=== PATIENT | male | born 1975 | race Caucasian/White ===

== ENCOUNTER 2017-01-31 07:43 | Inpatient (IN) | payer OTHER ==
--- NOTE | ~2017-01-31 | A ---
[facility] Nutrition Therapy DATE: 02/02/17 Patient: DANE POPE Physician: AL Address: [address] [place] [address] Room/Bed: [address], Zip: [place] [phone] Admit Date: 01/31/17 Date of : 71 Height: 5 11 Weight: 216 98 NUTRITIONAL ASSESSMENT: REASON: NPO IN ICU ASSESSMENT PT IS 41 Y.O. MALE ADMITTED FOR WEAKNESS, ACUTE RESP FAILURE PMH: NO KNOWN PMH Anthropometrics: 5'11", WT: 190# (BEDSIDE) (86 KG), BMI: 26.5, 110%IBW Labs: GLU: 164, BUN: 8, A1c: 5.4 Meds: FENTANYL, PROTONIX, VERSED, LIPITOR, NOVOLOG, NACL, D5% I/O & Bowel function: 2304/1780 Skin Integrity: NO KNOWN SKIN ISSUES EDEMA: PEDAL TRACE EDEMA Estimated Nutrition Needs: 6555-2019 KCAL (25-30 KCAL/KG BW) 86-112 G PRO (1.0-1.3 G PRO/KG BW) FLUIDS CONSISTENT W/KCAL NEEDS OR MANAGE PER MD Assessment: CHART REVIEWED AND EVENTS NOTED. PT SEEN FOR NPO IN ICU ASSESSMENT. PT INTUBATED AND SEDATED AT TIME OF VISIT. PLANS IN PLACE FOR DHT PLACEMENT AND NEED FOR ENTERAL NUTRITION SUPPORT RECOMMENDATIONS. OF NOTE, PT [place]ANISH DECENT WHO WAS [place]. PT WAS TRANSFERRED TO ICU FROM FOR POSSIBLE CVA AND RESP FAILURE. ALSO, KEEL PRESS OPERATOR DEEMED PT NOT APPROPRIAT FOR DIET ADVANCEMENT 2' NONFUNCTIONAL PHARYNGEAL SWALLOW, ?NEED FOR TRACH AND PEG PLACEMENT. NO FAMILY IN ROOM AT TIME OF VISIT. RD TO FOLLOW. SEE RECOMMENDATIONS BELOW. 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 Intervention: 1. NPO 2. RD CONSULT Monitoring, Evaluation and Goals: 1. ENTERAL NUTRITION; PROVIDE ~80-100% ESTIMATED NUTRIENT NEEDS AT GOAL X 24 HOURS 2. ORAL INTAKE; ADVANCE DIET PER KEEL PRESS OPERATOR & CONSUME >50% OF MEALS W/NO C/O N/V/D 3. LABS; WNL 4. GI; PROMOTE REGULAR GI FUNCTION [facility] DATE: 02/02/17 Patient: DANE POPE Physician: AL Address: [address] [place] [address] Room/Bed: [address], Zip: [place] [address] Admit Date: 01/31/17 Date of : [birth year] Height: 5 11 Weight: 216 98 MONITOR: -WEIGHTS -TF INITIATION/TF RATE/RESIDUALS -LABS -EXTUBATION? Recommendations: 1. ONCE MEDICALLY FEASIBLE, BEGIN ALTERNATIVE NUTRITION SUPPORT OF JEVITY 1.5 @ 20 ML/HR, ADVANCE 10 ML q 6 HOURS TO GOAL RATE OF 65 ML/HR -PROVIDES 2340 KCAL, 99 G PRO, 1186 ML FREE H20 ADD FREE H20 FLUSHES OF PER MD 2. ONCE PT EXTUBATED, ADVANCE DIET PER KEEL PRESS OPERATOR + HH DIET RD WILL F/U PER PROTOCOL PT IS SEVERELY COMPROMISED Respectfully, IWONA CORONEL MS, RD, LD [employer] and Nutritional Services [facility] [place] [facility] cc: client file
--- NOTE | ~2017-01-31 | US85 ---
[facility] A Service of [facility] RADIOLOGY TEXT RESULTS PATIENT: DANE POPE LOCATION: MARCIA : 71 UNIT #: [id number] AGE: [address]: Rush Herron MD SEX: M ORDER DR: [id number] [facility] [address] [facility]. [place], [place] [address] [id number] E MR#: [id number] Acc #: [id number] NAME: DANE POPE : 1975 SEX: M STUDY DATE/TIME: 01/31/2017 8:04 UNIT: MARCIA ROOM: STUDY DESCRIPTION: [facility] [employer] Attending Physician: Rush Herron M.D. Ordering Physician: Rush Herron M.D. Primary Care Physician: Primary Care Physician No MEDICAL IMAGING REPORT This report is preliminary unless electronic signature is present EXAM Left lower extremity venous ultrasound. INDICTIONS Left lower extremity pain for two days. TECHNIQUE Venous ultrasound examination of the left lower extremity was performed using grayscale, spectral Doppler and color flow Doppler imaging. FINDINGS The examination is negative. There is no evidence of left lower extremity deep venous thrombus from the groin to the lower calf. Visualized greater saphenous vein is also patent. IMPRESSION Negative examination. No evidence of left lower extremity deep venous thrombosis. Dictated by... Adam Gallego M.D. THIS IS AN ELECTRONICALLY VERIFIED REPORT Adam Gallego M.D. at 01/31/2017 1:37 PM JOELLE/romero TD: 01/31/2017 09:15 JOB #: [id number] MEDICAL IMAGING REPORT [facility] A Service of [facility] RADIOLOGY TEXT RESULTS PATIENT: DANE POPE LOCATION: M[place]IA : 71 UNIT #: [id number] AGE: [address]: Rush Herron MD SEX: M ORDER DR: Page 1 of 1 COPY
--- NOTE | ~2017-01-31 | FU ---
[facility] Nutrition Therapy DATE: 02/04/17 Patient: DANE POPE Physician: AL Address: [address] [place] [address] Room/Bed: [address], Zip: [place] [address] Admit Date: 01/31/17 Date of : [birth year] Height: 5 11 Weight: 221 100.5 NUTRITION MONITORING/FOLLOW-UP: Reason: PT SEEN FOR FOLLOW-UP/ENTERAL NUTRITION SUPPORT DX: WEAKNESS, ACUTE RESP FAILURE Anthropometrics: 5'11", WT: 221# (100 KG), BMI: 30.8 -PER FAMILY, PT WEIGHS ~210# (95 KG)-BMI: 29.3 Labs: GLU: 128, BUN: 8, CREAT: 0.5 Meds: FENTANYL, NACL, PROTONIX, VERSED, LIPITOR, NOVOLOG I&O's: 4558/3370 Skin: PEDAL/ANKLE EDEMA Estimated Nutrition Needs: 0526-8915 KCAL (25-30 KCAL/KG BW) (95 KG) 95-123 G PRO (1.0-1.3 G PRO/KG BW) FLUIDS CONSISTENT W/KCAL NEEDS OR MANAGE PER MD Assessment: CHART REVIEWED AND EVENTS NOTED. PT SEEN FOR ENTERAL NUTRITION SUPPORT FOLLOW-UP. PT CONTINUES TO BE INTUBATED AND SEDATED. ENTERAL NUTRITION OF JEVITY 1.5 CURRENTLY OFF 2' BRONCHOSCOPY SCHEDULED THIS AM. PER RN AND CHART, PT TOLERATING EN, NOTING NO ISSUES AT THIS TIME. ALSO, ?TRACH AND PEG AND ?BICKERSTAFF ENCEPHALITIS. FAMILY IN ROOM REPORTED NO DIET QUESTIONS AT THIS TIME. RD TO CONTINUE TO FOLLOW. 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 ENTERAL NUTRITION SUPPORT Monitoring, Evaluation and Goals: 1. ENTERAL NUTRITION; PROVIDE ~80-100% ESTIMATED NUTRIENT NEEDS-NOT MET 2. LABS; WNL-ACTIVE 3. GI; PROMOTE REGULAR GI FUNCTION-ACTIVE MONITOR: -WEIGHTS -TF RATE/RESIDUALS -EXTUBATION? -LABS [facility] Nutrition Therapy DATE: 02/04/17 Patient: DANE POPE Physician: AL Address: [address] [place] [address] Room/Bed: [address], Zip: [place] [address] Admit Date: 01/31/17 Date of : [birth year] Height: 5 11 Weight: 221 100.5 Recommendations: 1. ONCE MEDICALLY FEASIBLE, RE-START ENTERAL NUTRITION SUPPORT OF JEVITY 1.5 @ 25 ML/HR, ADVANCE 10 ML q 4 HOURS TO GOAL RATE OF 65 ML/HR -PROVIDES 2340 KCAL, 99 G PRO, 1186 ML FREE H20 ADD FREE H20 FLUSHES OF 200 ML q 4 HOURS TO MEET PT'S CURRENT ESTIMATED FLUID NEEDS OR MANAGE PER MD 2. ONCE PT EXTUBATED, ADVANCE DIET PER ELEMENTARY EDUCATION TEACHER + HH DIET RD WILL F/U PER PROTOCOL PT IS MOD/SEVERELY COMPROMISED Respectfully, IWONA CORONEL MS, RD, LD Food and Nutritional Services [facility] cc: client file
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
--- NOTE | ~2017-01-31 | CR7 ---
[facility] A Service of [facility] & [facility] RADIOLOGY TEXT RESULTS PATIENT: DANE POPE LOCATION: CICCU2 CICCU11-07 : [birth year] UNIT #: [id number] AGE: [address]: Analy Perez MD SEX: M ORDER DR: [id number] [facility] [address] [place], [place] [address] [id number] I MR#: [id number] Acc #: [id number] NAME: DANE POPE : 1975 SEX: M STUDY DATE/TIME: 02/02/2017 15:57 UNIT: CICCU2 ROOM: [facility] STUDY DESCRIPTION: CR Abdomen Single AP View Attending Physician: Analy Perez M.D. Ordering Physician: Sebas Beverly M.D. Primary Care Physician: No Primary Care Physician MEDICAL IMAGING REPORT This report is preliminary unless electronic signature is present EXAM Portable AP view of the abdomen. COMPARISON February 02, 2017 at 1:14 p.m. and 9:58 a.m. INDICATION 41-year-old male. Feeding tube tip placement today. FINDINGS Weighted feeding tube appears to have retracted slightly with the tip in the gastric fundus. Advancement is recommended. There is gaseous distension of small bowel loops and colon without evidence of mechanical bowel obstruction. IMPRESSION 1. Weighted feeding tube is retracted slightly with the tip in the gastric fundus. Advancement is recommended. 2. No evidence of bowel obstruction. Dictated by... Carlos Nice M.D. THIS IS AN ELECTRONICALLY VERIFIED REPORT Carlos Nice M.D. at 02/07/2017 5:18 PM MAYDA/sal TD: 02/02/2017 17:24 JOB #: [id number] MEDICAL IMAGING REPORT [facility] A Service of [facility] & [facility] RADIOLOGY TEXT RESULTS PATIENT: DANE POPE [facility] [birth year] UNIT #: [id number] AGE: [address]: Analy Perez MD SEX: M ORDER DR: Page 1 of 1 COPY
--- NOTE | ~2017-01-31 | CO ---
Unit #: [id number] #: [id number] Patient: DANE POPE [id number] [address] [place], [place] [address] [id number] I MR#: [id number] NAME: DANE POPE ROOM: [facility] Age: 41 Sex: M Admission Date: 01/31/2017 : 1975 Attending Physician: Analy Perez M.D. Primary Care Physician: Rupa Primary Care Physician Consultation Date: 02/01/2017 CONSULTATION REPORT ADDENDUM The patient is a 41-year-old male of [place] descent who was admitted to the hospital at this time with neurologic changes suggestive of a stroke. His symptoms worsened over the day as he required intubation to protect his airway. We were asked to see the patient at this time for possible tracheostomy. I agree with the evaluation as documented by my nurse practitioner, Esperanza Wagner, in her consultation. I will plan to proceed with a tracheostomy tomorrow in the operating room on the patient. Dictated by... Ras Tidwell M.D. VIRGEN/rupinder TD: 02/02/2017 06:51 JOB #: [id number] CONSULTATION REPORT Page 1 of 1 X Ras Tidwell MD X CONSULTATION REPORT
--- NOTE | ~2017-01-31 | DS ---
Unit #: [id number] #: [id number] Patient: DANE POPE [id number] [address] [place], [place] [address] [id number] I MR#: [id number] NAME: DANE POPE ROOM: [facility] Age: 41 Sex: M Admission Date: 01/31/2017 : 1975 Discharge Date: 02/04/2017 Attending Physician: Analy Perez M.D. Primary Care Physician: No Primary Care Physician DISCHARGE SUMMARY PLACE OF TRANSFER [facility]. HISTORY OF PRESENT ILLNESS/HOSPITAL COURSE The patient is a 41-year-old male with no significant past medical history, who was brought to the emergency department secondary to complaints of weakness and left lower extremity as well as right upper extremity. Please see H and P for details of initial part of hospital stay. Patient underwent CT brain noncontrast in emergency room as well as CTA head and neck which were negative. Through initial part of hospital course, concern for underlying cerebrovascular accident was made. Consultations were placed to Dr. Vargas. Patient underwent routine stroke protocol. Consideration was given for MRI and subsequently plans were being made for the patient to be transferred for MRI when subsequently he developed dysphagia as well as difficulty clearing his secretions. After discussion with the patient, Dr. Bevrely of intensive care services was called. Patient was told that secondary to compromising airway he required ventilation as well as PEG tube placement. He agreed. He was subsequently sedated, placed on ventilator, and subsequently consultation was also placed for PEG tube placement. We also consulted thoracic surgery services secondary to need for tracheostomy placement and subsequently on February 02, 2017, the patient underwent tracheostomy and was placed on ventilator for ongoing care. Consideration for possible postinfectious neuropathy. Consideration to his recent travels to [place] as well as abroad. We consulted infectious disease services. Ultimately, his MRI brain was negative for acute CVA and then consideration was placed for atypical asymmetric lower motor neuron-type paralysis, questionable infectious etiology, possible encephalomyelitis. Patient was placed on Zithromax IV. Repeat imaging including brain, C-spine was also recommended. Patient underwent diagnostic and therapeutic bronchoscopy by Dr. Beverly on February 04, 2017. In consideration of a normal MRI as well as worsening condition and unclear diagnosis of possible underlying immunocompromised state and/or possible encephalitis-like picture. Dr. Vargas reviewed case with [facility], Dr. Gastelum, and decision was made for patient to be transferred to [facility] for ongoing care. At time of transfer, his current diagnosis is as follows. Unit #: [id number] #: [id number] Patient: DANE POPE DISCHARGE DIAGNOSES 1. Acute on chronic respiratory failure. 2. 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 3. Inability to clear respiratory secretions. 4. Dysphagia, secondary to neuropathy, unclear etiology. 5. Status post bronchoscopy. DISPOSITION [facility] for ongoing care. DIAGNOSTIC STUDIES IMAGING: Radiological studies including through hospital course include: CT brain negative for acute process. CTA head and neck negative. MRI brain negative. Further disposition per [facility] service. Dictated by... Analy Perez M.D. SKINNY/emerald TD: 02/21/2017 16:00 JOB #: [id number] DISCHARGE SUMMARY Page 1 of 1 X Analy Perez MD X DISCHARGE SUMMARY
--- NOTE | ~2017-01-31 | HP ---
Unit #: [id number] #: [id number] Patient: DANE POPE [id number] [address] [place], [place] [address] [id number] E MR#: [id number] NAME: DANE POPE ROOM: Age: 41 Sex: M Admission Date: 01/31/2017 : 1975 Attending Physician: Rush Herron M.D. Primary Care Physician: No Primary Care Physician HISTORY AND PHYSICAL CHIEF COMPLAINT Weakness. HISTORY OF PRESENT ILLNESS The patient is a 41-year-old male with no significant medical history brought to the emergency room complaining of weakness of the left lower extremity and right upper extremity. The patient stated the patient has been overseas for a month and returned home on Tuesday, yesterday, from the [facility]. The patient noted that he had a wobbly gait prior to the taking the long distance flight. The patient stated that he had no choice but just to come back here. The patient denies any shortness of breath, chest pain, dizziness or trauma. The patient complains that the left leg has some weakness and the right upper extremity has some movements and the complaint of right neck pain. The patient had a CT and CTA of the head and neck and that has remained negative. The patient is being admitted for the above reasons. PAST MEDICAL HISTORY None. PAST SURGICAL HISTORY None. SOCIAL HISTORY No history of smoking, alcohol, or any illicit drug abuse. FAMILY HISTORY No history of CVAs. ALLERGIES Penicillin. HOME MEDICATIONS None. REVIEW OF SYSTEMS A 14-point review of systems was performed only pertinent positive findings are described above, remaining are negative. PHYSICAL EXAMINATION GENERAL APPEARANCE: The patient is lying on a bed, not in acute distress. VITAL SIGNS: Temperature 97.2. Pulse 86. Respiratory rate 16. Blood pressure 127/80. Sating 97% at room air. HEENT: Head: Atraumatic, normocephalic. ENT: Pupils equal, round and Unit #: [id number] #: [id number] Patient: DANE POPE reactive to light and accommodation. Extraocular movements are intact. NECK: Supple. LUNGS: Decreased air entry at the bases. HEART: Regular rate and rhythm. ABDOMEN: Soft. Positive bowel sounds. EXTREMITIES: The patient has no motor strength of the left lower extremity and decreased motor activity on the right upper extremity. Sensations were normal. NEUROLOGIC: The patient is alert, awake, oriented with (1) weakness on the left lower extremity 1/5 and right upper extremity is 2/5 compared to the normal 5/5 of the other extremities. PSYCHIATRIC: Mood and affect are appropriate. DIAGNOSTIC STUDIES LABORATORY: Glucose 109, BUN 9, creatinine 0.6, sodium 137, potassium 3.6, chloride 102, bicarb 24, calcium 9.5, AST 29, ALT 23, alkaline phosphatase 99. INR is one. WBC 7, hemoglobin 14.9, hematocrit 45, platelet 263. IMAGING: The patient had a Doppler of the left lower extremity that is negative for deep venous thrombosis. CT of the head showed left posterior fossa arachnoid cyst with mild mass effect, otherwise, normal negative unenhanced head CT. No acute findings. CTA of the head and neck shows no hemodynamically flow-limiting significant stenosis and bilateral internal carotid bulbs per NASCET criteria. No obvious aneurysms or AVM. 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 It significantly further decreases in caliber as it extends intradurally in the P4 segment. CARDIOVASCULAR: EKG shows normal sinus rhythm. Normal EKG. ASSESSMENT 1. Left lower extremity weakness. 2. Right arm weakness. PLAN Admit the patient to observation with telemetry. Check MRI of the brain with and without contrast. Check the urine toxicology and lipid profile. We will have Neuro consult to assess for the weakness of the left lower extremity and the right upper extremity and Physical Therapy. Further recommendations will follow as more lab results are available. Dictated by Rama Hinojosa TD: 01/31/2017 13:54 JOB #: [id number] Unit #: [id number] #: [id number] Patient: DANE POPE HISTORY AND PHYSICAL Page 1 of 1 X X HISTORY AND PHYSICAL
--- NOTE | ~2017-01-31 | CR72 ---
[facility] A Service of [facility] & [facility] RADIOLOGY TEXT RESULTS PATIENT: DANE POPE [address]ATION: [address] : [birth year] UNIT #: [id number] AGE: [address]: Analy Perez MD SEX: M ORDER DR: [id number] [facility] [address] [facility] [place], [place] [address] [id number] I MR#: [id number] Acc #: [id number] NAME: DANE POPE : 1975 SEX: M STUDY DATE/TIME: 02/03/2017 8:21 UNIT: [facility] ROOM: [facility] STUDY DESCRIPTION: CR Chest Single View Portable Attending Physician: Analy Perez M.D. Ordering Physician: Staff Doctor Not On Primary Care Physician: No Primary Care Physician MEDICAL IMAGING REPORT This report is preliminary unless electronic signature is present EXAM Portable chest HISTORY Pneumonia, weakness. Patient intubated since 01/31/2017. COMPARISON 02/01/2017 FINDINGS Endotracheal tube remains high position about 8.5 cm above the bill. Advancement about 1.5-2 cm may be recommended for more optimal positioning. A flexible feeding tube demonstrates distal tip in the left upper quadrant with about 10 cm catheter below the GE junction. Further advancement 10-15 cm may allow for more optimal positioning in the distal stomach/proximal small bowel. There is right-sided volume loss with right basilar atelectasis and/or infiltrate. Heart and mediastinum unremarkable. There is a left neck approach central line, its distal tip not visualized due to overlying monitoring leads. Mild interstitial prominence. Left lung appears relatively clear. No pneumothorax. Findings were called to ICU at [facility] and discussed with the attending nurse. Dictated by... Francoise Robles M.D. THIS IS AN ELECTRONICALLY VERIFIED REPORT Francoise Roblse M.D. at 02/03/2017 5:28 PM Aaron TD: 02/03/2017 10:02 [facility] A Service of [facility] & [facility] RADIOLOGY TEXT RESULTS PATIENT: DANE POPE LOCATION: [address] : [birth year] UNIT #: [id number] AGE: [address]: Analy Perez MD SEX: M ORDER DR: JOB #: [id number] MEDICAL IMAGING REPORT Page 1 of 1 COPY
--- NOTE | ~2017-01-31 | MR18 ---
[facility] A Service of [facility] & [facility] RADIOLOGY TEXT RESULTS PATIENT: DANE POPE LOCATION: [address] : [birth year] UNIT #: [id number] AGE: [address]: Analy Perez MD SEX: M ORDER DR: [id number] [facility] [address] [place], [place] [address] [id number] I MR#: [id number] Acc #: [id number] NAME: DANE POPE : 1975 SEX: M STUDY DATE/TIME: 02/01/2017 13:32 UNIT: [facility] ROOM: [facility] STUDY DESCRIPTION: MR Brain Wo Contrast Attending Physician: Analy Perez M.D. Ordering Physician: Analy Perez M.D. MRI CENTER REPORT This report is preliminary unless electronic signature is present. EXAM MRI of the brain without contrast dated 02/01/2017. COMPARISON CT head without contrast dated 01/31/2017. HISTORY Dysarthria, weakness after he woke up on Tuesday morning. He flew from [place] following the symptoms and reached the emergency room in [facility]. He had some wobbly gait also during his physical exam by doctor. Swelling problems and right upper extremity weakness, along with left lower extremity weakness. FINDINGS Multisequence multiplanar imaging of the brain was obtained without contrast. Age-appropriate parenchymal volume is seen. No acute stroke, hydrocephalus or midline shift is seen. There is CSF signal C-shaped lesion along the surface of the left cerebellar hemisphere suggestive of a subdural hygroma. It measures up to 1.2 cm in thickness and causes a mass effect on the adjacent left cerebellar hemisphere. No significant atrophy is seen. Thick slices through the sella with the pituitary gland, pineal region and upper cervical spine are unremarkable. IMPRESSION 1. No acute intracranial abnormality. 2. There is a 1.2 cm thick CSF extraaxial fluid collection overlying the left cerebellar hemisphere suggestive of subdural hygroma based on signal characteristics. 3. No acute stroke or solid obvious mass, hydrocephalus or hemorrhage. Dictated by... Lili Echols M.D. [facility]. [facility] A Service of [facility] RADIOLOGY TEXT RESULTS PATIENT: DANE POPE LOCATION: [facility]-05 : 71 UNIT #: [id number] AGE: [address]: Analy Perez MD SEX: M ORDER DR: THIS IS AN ELECTRONICALLY VERIFIED REPORT Lili Echols M.D. at 02/03/2017 3:13 PM CPR/rnr TD: 02/01/2017 19:58 JOB #: [id number] MRI CENTER REPORT Page 1 of 1 COPY
--- NOTE | ~2017-01-31 | OR ---
Unit #: [id number] #: [id number] Patient: DANE POPE [id number] [address] [place], [place] [address] [id number] I MR#: [id number] NAME: DANE POPE ROOM: [facility] Date of Procedure: 02/01/2017 Admission Date: 01/31/2017 Surgeon: Rui Beverly M.D. : 1975 Attending Physician: Analy Perez M.D. Primary Care Physician: Rupa Primary Care Physician PROCEDURE OPERATIVE NOTE PROCEDURE PERFORMED Left internal jugular venous catheter placement with ultrasound guidance. INDICATION FOR PROCEDURE Lack of IV access and patient is on the vent. PREOPERATIVE DIAGNOSIS Acute cerebrovascular accident. COMPLICATIONS None. DESCRIPTION OF THE PROCEDURE An informed consent was obtained verbally from the patient as he was unable to sign prior to the procedure. The patient was prepped and positioned in a proper way and then a clean body drape was applied and chlorhexidine was applied to the left neck and then, with the ultrasound guidance, a needle was inserted in the left intrajugular vein. Blood flow was obtained and then a guidewire was inserted and the needle was removed and a dilator was used to create a tract for the catheter and then the catheter was inserted over the guidewire and the guidewire was removed. The catheter was flushed appropriately and sutured in place. Then, a Biopatch and clean dressing were applied and a stat chest x-ray is pending at the time of dictation. Dictated by... Rui Beverly M.D. EA/audra TD: 02/01/2017 12:22 JOB #: [id number] Unit #: [id number] #: [id number] Patient: DANE POPE PROCEDURE OPERATIVE NOTE Page 1 of 1 X RUI SCHILLING MD X PROCEDURE OPERATIVE NOTE
--- NOTE | ~2017-01-31 | CO ---
Unit #: [id number] #: [id number] Patient: DANE POPE [id number] [address] [address] [id number] I MR#: [id number] NAME: DANE POPE ROOM: [facility] Age: 41 Sex: M Admission Date: 01/31/2017 : 1975 Attending Physician: Analy Perez M.D. Primary Care Physician: No Primary Care Physician Consultation Date: 02/01/2017 CONSULTATION REPORT REASON FOR CONSULT Airway management. HISTORY OF PRESENT ILLNESS This is a 41-year-old male originally from [place] who has no past medical history who presented to the emergency room complaining of left lower extremity and right upper extremity weakness that started suddenly. Per the record, the patient has been overseas for a month and just returned home on Tuesday. Per record, patient noted that he had a wobbly gait prior to taking his long-distance flight. Patient denied any shortness of breath, cough, or chest pain; however, he is now in respiratory distress and a feeling of drowning from oral secretions. PAST MEDICAL HISTORY None. PAST SURGICAL HISTORY None. SOCIAL HISTORY No history of alcohol, smoking, or drug abuse. FAMILY HISTORY No coronary artery disease or CVAs. HOME MEDICATIONS None. ALLERGIES Penicillin. REVIEW OF SYSTEMS Twelve-point review of systems was obtained and was negative, except for what was mentioned above. PHYSICAL EXAMINATION GENERAL: The patient is anxious and feeling that he is drowning in his secretions. VITAL SIGNS: Temperature 98.3, pulse 81, respiratory rate 16, and blood pressure 121/68, and O2 saturation 98% on room air. HEENT: Atraumatic and normocephalic. PERRLA. EOMI. NECK: Supple. No JVD. No lymphadenopathy. CHEST: Decreased breath sounds bilaterally, but no crackles or rhonchi. HEART: S1 and S2. No murmurs, gallops, or rubs. Unit #: [id number] #: [id number] Patient: DANE POPE ABDOMEN: Soft and nontender. Bowel sounds positive. No hepatosplenomegaly. EXTREMITIES: No edema or cyanosis. LIMNOLOGIST: Patient is awake, alert, and oriented x3. He has left lower extremity weakness, 1/5, and right upper extremity weakness, 2/5. SKIN: No rash. DIAGNOSTIC STUDIES LABORATORY: Creatinine 0.6, sodium 137, potassium 3.6, chloride 103, and CO2 24. White blood count 6.9, hemoglobin 15.7, and platelets 290. IMAGING: Consistent with acute ischemic CVA. ASSESSMENT 1. Acute respiratory failure secondary to lack of ability to control airway from new stroke. 2. Acute ischemic CVA. PLAN This is a very unfortunate 41-year-old male with a new onset of acute ischemic CVA with significant impairment in loss of strength and ability to protect airway. Video fluoroscopy showed no muscle tone in his throat and he is constantly aspirating. The patient is feeling that he is drowning in his secretions. I had a lengthy discussion with the patient and his friend at bedside about the need for tracheostomy and feeding tube and this could be lifelong. Patient stated that he is feeling like he is going to from his secretions and he is okay with proceeding with a temporary intubation pending long-term plan for tracheostomy and feeding tube placement. Will continue patient on IV fluids. Deep venous thrombosis prophylaxis when appropriate with neurology. Will ask cardiothoracic surgery and gastroenterology to prepare for a tracheostomy and feeding tube placement within the next 24-48 hours. I would like to thank Dr. Vargas for allowing me to be part of this patient's care. Dictated by... Rama Bello TD: 02/01/2017 12:54 JOB #: [id number] CONSULTATION REPORT Page 1 of 1 X RUI SCHILLING MD X CONSULTATION REPORT
--- NOTE | ~2017-01-31 | CR72 ---
[facility] A Service of [facility] & [facility] RADIOLOGY TEXT RESULTS PATIENT: DANE POPE LOCATION: [address] : [birth year] UNIT #: [id number] AGE: [address]: Analy Perez MD SEX: M ORDER DR: [id number] [facility] [address] [place], [place] [address] [id number] I MR#: [id number] Acc #: [id number] NAME: DANE POPE : 1975 SEX: M STUDY DATE/TIME: 02/01/2017 12:04 UNIT: [facility] ROOM: [facility] STUDY DESCRIPTION: CR Chest Single View Portable Attending Physician: Analy Perez M.D. Ordering Physician: Sebas Beverly M.D. Primary Care Physician: Primary Care Physician No MEDICAL IMAGING REPORT This report is preliminary unless electronic signature is present EXAM Portable chest x-ray, 02/01/17 HISTORY Status post intubation central line today. FINDINGS AP radiographs of the chest are presented. No comparisons. Endotracheal tube terminates approximately 6.6 cm above the bill at the T2 vertebral body level. For placement in the mid thoracic trachea it could be advanced perhaps 1 to 2 cm and reassessed radiographically. Left internal approach central venous catheter terminates in superior vena cava. Heart upper limits of normal in size. Lung volumes moderate. Slight elevation of the left hemidiaphragm. Pulmonary vasculature is prominent suggesting mild underlying vascular congestion. Patchy densities in left retrocardiac region are nonspecific. Components of atelectasis or basilar pneumonia could be present. Follow up to resolution is recommended. There is no dense airspace consolidation. No pleural effusion or pneumothorax. No suspicious nodule. Irregularly shaped radiodensities superimposed over the left upper quadrant of abdomen are of unclear exact etiology and location. These are probably reflection of ingested material in stomach. Relatively hyperdense material in transverse colon could be considered. The possibility of intraabdominal calcifications of unclear location could be considered. Dictated by... Jose Guadalupe Reinoso M.D. THIS IS AN ELECTRONICALLY VERIFIED REPORT Jose Guadalupe Reinoso M.D. at 02/02/2017 6:[address] [facility]. [facility] A Service of [facility] & [facility] RADIOLOGY TEXT RESULTS PATIENT: DANE POPE LOCATION: [facility]2-05 : 71 UNIT #: [id number] AGE: [address]: Analy Perez MD SEX: M ORDER DR: BRENT/romero TD: 02/01/2017 14:12 JOB #: [id number] MEDICAL IMAGING REPORT Page 1 of 1 COPY
--- NOTE | ~2017-01-31 | CT71 ---
[facility] A Service of [facility] RADIOLOGY TEXT RESULTS PATIENT: DANE POPE LOCATION: [facility]11-07 : [birth year] UNIT #: [id number] AGE: [address]: Analy Perez MD SEX: M ORDER DR: [id number] [place] [id number] [facility]. [place], [place] [address] [id number] E MR#: [id number] Acc #: [id number] NAME: DANE POPE : 1975 SEX: M STUDY DATE/TIME: 01/31/2017 9:29 UNIT: [facility] ROOM: STUDY DESCRIPTION: CT Head Wo Contrast Attending Physician: Rush Herron M.D. Ordering Physician: Rush Herron M.D. Primary Care Physician: Primary Care Physician No MEDICAL IMAGING REPORT This report is preliminary unless electronic signature is present EXAM Head CT no contrast 01/31/2017 PROCEDURE Axial unenhanced head CT. This CT examination was performed with one or more of the following radiation dose reduction techniques: automatic exposure control, adjustment of mA and/or kV according to patient size, and iterative reconstruction. HISTORY Left leg weakness and right neck pain for 2 days. FINDINGS There is no intracranial hemorrhage or mass. There is no hydrocephalus. There is a left posterior fossa arachnoid cyst, but otherwise no extraaxial fluid collection is seen. Brain parenchymal density is normal. The extracranial soft tissues are unremarkable. The skull base and calvaria are normal. IMPRESSION Left posterior fossa arachnoid cyst with mild mass effect. Otherwise normal negative unenhanced head CT. No acute finding. Dictated by... Tank Sanders M.D. THIS IS AN ELECTRONICALLY VERIFIED REPORT Tank Sanders M.D. at 02/07/2017 10:44 AM OKSANA/mahad TD: 01/31/2017 10:27 JOB #: [id number] [facility] A Service of [facility] RADIOLOGY TEXT RESULTS PATIENT: DANE POPE [address] [birth year] UNIT #: [id number] AGE: [address]: Analy Perez MD SEX: M ORDER DR: MEDICAL IMAGING REPORT Page 1 of 1 COPY
--- NOTE | ~2017-01-31 | MR17 ---
[facility] A Service of [facility] & [facility] RADIOLOGY TEXT RESULTS PATIENT: DANE POPE LOCATION: [address] : [birth year] UNIT #: [id number] AGE: [address]: Analy Perez MD SEX: M ORDER DR: [id number] [facility] [address] [place], [place] [address] [id number] I MR#: [id number] Acc #: [id number] NAME: DANE POPE : 1975 SEX: M STUDY DATE/TIME: 02/03/2017 13:36 UNIT: [facility] ROOM: [facility] STUDY DESCRIPTION: MR Brain WWo Contrast Attending Physician: Analy Perez M.D. Ordering Physician: Analy Perez M.D. Primary Care Physician: No Primary Care Physician MRI CENTER REPORT This report is preliminary unless electronic signature is present. EXAM MRI of the brain with and without contrast dated 02/03/2017. COMPARISON STUDIES MRI of the brain without contrast dated 02/01/2017. HISTORY Patient is on vent. Unable to move extremities since 01/31/2017. FINDINGS Multisequence, multiplanar imaging of the brain was obtained with and without contrast. GFR measured greater than 60. 10 mL of MultiHance was administered intravenously. No acute stroke, hydrocephalus, hemorrhage, or midline shift is seen. Previously mentioned prominent asymmetrical CSF space overlying the left cerebellar hemisphere measuring about 1.2 cm in maximum thickness is again seen with mass effect on the adjacent left cerebellar hemisphere without any edema. No interval new intracranial abnormality. No new enhancing nodular mass or edema is noted to suggest infection. There is some prominence of the vessels in the subarachnoid space but it is seen throughout the brain and is likely related to the phase of contrast imaging rather than due to enhancement of the meninges. IMPRESSION 1. No significant interval change. 2. Redemonstrated is a benign chronic subdural hematoma/hygroma or arachnoid cyst overlying the left cerebellar hemisphere with mass effect on it. 3. There is enhancement of the vessels in the region of the sulci which is prominent. It is more likely the vessel enhancing and not the meninges. If there is concern for meningitis, CSF tap can be considered. No dural enhancement is seen. [facility] A Service of [facility] RADIOLOGY TEXT RESULTS PATIENT: DANE POPE [facility] [birth year] UNIT #: [id number] AGE: [address]: Analy Perez MD SEX: M ORDER DR: Dictated by... Lili Echols M.D. THIS IS AN ELECTRONICALLY VERIFIED REPORT Lili Echols M.D. at 02/04/2017 4:31 PM CPR/tmw TD: 02/03/2017 17:04 JOB #: [id number] MRI CENTER REPORT Page 1 of 1 COPY
--- NOTE | ~2017-01-31 | CO ---
Unit #: [id number] #: [id number] Patient: DANE POPE [id number] [address] [place], [place] [address] [id number] I MR#: [id number] NAME: DANE POPE ROOM: [facility] Age: 41 Sex: M Admission Date: 01/31/2017 : 1975 Attending Physician: Analy Perez M.D. Primary Care Physician: No Primary Care Physician CONSULTATION REPORT REASON FOR CONSULTATION Dysphagia, PEG tube placement. HISTORY OF PRESENT ILLNESS The patient is a 41-year-old male, who evidently has no significant past medical history, who complains of weakness. Patient was actually recently upgraded from telemetry for intubation and airway management. He is intubated. He has subsequently had a MRI to rule out stroke. Speech therapy has worked with the patient prior to intubation and patient was unable to safely eat and protect his airway. Thus, we are being consulted for PEG tube placement. PAST MEDICAL HISTORY None. PAST SURGICAL HISTORY None. SOCIAL HISTORY Denies smoking, alcohol, or illicit drug use. FAMILY HISTORY Per chart, reviewed and noncontributory. ALLERGIES Penicillin. HOME MEDICATIONS None. REVIEW OF SYSTEMS Unobtainable secondary to patient's mental status and intubation. PHYSICAL EXAMINATION GENERAL: Patient is intubated. Vital signs stable. Appears in no acute distress. VITAL SIGNS: Temperature 98.4, pulse is 86, respirations 16, blood pressure 120/66. HEENT: PERRLA. NECK: Supple. CARDIAC: S1, S2. A little bit tachycardic. RESPIRATORY: Clear to auscultation. ABDOMEN: Soft, round, nontender, nondistended. Positive bowel sounds. NEUROLOGIC: Patient again is sedated and intubated. Unit #: [id number] #: [id number] Patient: DANE POPE DIAGNOSTIC STUDIES LABORATORY: Chemistries negative. CBC is negative. INR 1. Tox notable only for opiates. ASSESSMENT AND PLAN 1. Dysphagia: Will place percutaneous endoscopic gastrostomy tube in the morning pending consent can be obtained. 2. Acute respiratory failure, status post intubation. 3. Presumed cerebrovascular accident, workup per neurology at this time. Thank you for this interesting consult and will continue to follow along. Dictated by... Tatiana Mccormack A.P.R.N. for Rama Yeh/emerald TD: 02/01/2017 15:59 JOB #: [id number] CONSULTATION REPORT Page 1 of 1 X X CONSULTATION REPORT
--- NOTE | ~2017-01-31 | OR ---
Unit #: [id number] #: [id number] Patient: DANE POPE [id number] [address] [address] [id number] I MR#: [id number] NAME: DANE POPE ROOM: [facility] Date of Procedure: 02/04/2017 Admission Date: 01/31/2017 Surgeon: Rui Beverly M.D. : 1975 Attending Physician: Analy Perez M.D. Primary Care Physician: No Primary Care Physician PROCEDURE OPERATIVE NOTE PROCEDURE PERFORMED Diagnostic and therapeutic bronchoscopy with bronchoalveolar lavage. INDICATION FOR PROCEDURE Mucus plug. PREOPERATIVE DIAGNOSIS Respiratory failure and aspiration. FINDINGS Extensive amount of thin greenish secretions filling up completely the right main bronchus, right upper lobe, right lower lobe, and slightly in the left lower lobe. PREMEDICATION The patient is currently on fentanyl and propofol drips and 4 mg of Versed was given. DESCRIPTION OF PROCEDURE An informed consent was obtained from the patient's after explaining the benefit and risk of this procedure. The procedure was done at bedside in the ICU. The bronchoscope was advanced through the ET tube and at the level of the bill, 1% lidocaine was instilled x10 mL, then the bronchoscope was advanced into the right main bronchus and a large amount of thin greenish secretions were noted filling up completely the right main bronchus which was aspirated and then the right upper lobe, right lower lobe, and right middle lobe were examined which appeared erythematous but no endobronchial mass. Lavage was obtained from the right lower lobe. The bronchoscope was retracted and then re-advanced into the left main bronchus and left upper lobe, lingula, and left lower lobe were examined. A mild amount of secretion in the left lower lobe was noted which was aspirated and then the bronchoscope was retracted out then and patient tolerated his procedure well with no immediate complications. Dictated by... Rui Beverly M.D. Unit #: [id number] #: [id number] Patient: DANE POPE ENMANUEL/emerald TD: 02/04/2017 12:03 JOB #: [id number] PROCEDURE OPERATIVE NOTE Page 1 of 1 X RUI SCHILLING MD PROCEDURE OPERATIVE NOTE
--- NOTE | ~2017-01-31 | EKG ---
PATIENT: DANE POPE UNIT #: [id number] Ventricular Rate: 87 BPM Atrial Rate: 87 BPM P-R Interval: 202 ms QRS Duration: 104 ms Q-T Interval: 382 ms QTC Calculation(Bezet): 459 ms P [place]: 53 degrees Calculated R [place]: 5 degrees Calculated T [place]: 20 degrees Diagnosis Line: Normal sinus rhythm Diagnosis Line: Normal ECG Diagnosis Line: No previous ECGs available Diagnosis Line: Confirmed by ZULEIKA DIMAS MD ([id number]) on Diagnosis Line: 02/01/2017 4:33:02 PM INTERPRETING MD: WING CURTIS
--- NOTE | ~2017-01-31 | CR7 ---
[facility] A Service of [facility] & [facility] RADIOLOGY TEXT RESULTS PATIENT: DANE POPE [address]ATION: [address] : [birth year] UNIT #: [id number] AGE: [address]: Analy Perez MD SEX: M ORDER DR: [id number] [facility] [address] [place], [place] [address] [id number] I MR#: [id number] Acc #: [id number] NAME: DANE POPE : 1975 SEX: M STUDY DATE/TIME: 02/02/2017 9:58 UNIT: [facility] ROOM: [facility] STUDY DESCRIPTION: CR Abdomen Single AP View Attending Physician: Analy Perez M.D. Ordering Physician: Sebas Beverly M.D. Primary Care Physician: No Primary Care Physician MEDICAL IMAGING REPORT This report is preliminary unless electronic signature is present EXAM Supine radiograph of the abdomen, 02/02/2017. HISTORY Dobbhoff tube placement. FINDINGS Supine radiograph of the lower thorax and abdomen presented. Central venous catheter terminates in superior vena cava. An enteric tube is looped in the distal esophagus. It extends cephalad and the weighted tip is not visualized on this field of view. According to the center director, Dr. Beverly has seen at this image and has instructed patient's nurse to remove flexible feeding tube. Certainly, it should not be used at this location and repositioning is recommended. The visualized bowel gas pattern is normal. There is no indication of free air. No acute bony abnormality. Patchy and linear/band-like densities left lung base probably atelectatic in nature. Correlate with any clinical indications of pneumonia. The pulmonary vasculature appears mildly prominent. This could be a reflection of low lung volumes and bronchovascular crowding or some degree of vascular congestion. Dictated by... Jose Guadalupe Reinoso M.D. THIS IS AN ELECTRONICALLY VERIFIED REPORT Jose Guadalupe Reinoso M.D. at 02/03/2017 10:54 PM BRENT/ciro TD: 02/02/2017 13:31 JOB #: [id number] MEDICAL IMAGING REPORT Page 1 of 1 COPY
--- NOTE | ~2017-01-31 | CT23 ---
[facility] A Service of [facility] & [facility] RADIOLOGY TEXT RESULTS PATIENT: DANE POPE LOCATION: [facility] : [birth year] UNIT #: [id number] AGE: [address]: Rush Herron MD SEX: M ORDER DR: [id number] [place] [id number] [facility] [place] [facility]. [place], [place] [address] [id number] E MR#: [id number] Acc #: [id number] NAME: DANE POPE : 1975 SEX: M STUDY DATE/TIME: 01/31/2017 9:43 UNIT: [facility] ROOM: STUDY DESCRIPTION: CT Angio Neck Attending Physician: Rush Herron M.D. Ordering Physician: Rush Herron M.D. Primary Care Physician: No Primary Care Physician MEDICAL IMAGING REPORT This report is preliminary unless electronic signature is present EXAM CTA neck FINDINGS Result text under the CTA head examination. Please see that examination for full report. Dictated by... Lili Echols M.D. THIS IS AN ELECTRONICALLY VERIFIED REPORT Lili Echols M.D. at 01/31/2017 3:28 PM CPR/aa TD: 01/31/2017 11:43 JOB #: [id number] MEDICAL IMAGING REPORT Page 1 of 1 COPY
--- NOTE | ~2017-01-31 | CO ---
Unit #: [id number] #: [id number] Patient: DANE POPE [id number] [facility]. [place], [place] [address] [id number] I MR#: [id number] NAME: DANE POPE ROOM: [facility] Age: 41 Sex: M Admission Date: 01/31/2017 : 1975 Attending Physician: Analy Perez M.D. Primary Care Physician: Rupa Primary Care Physician Requesting Physician: Analy Perez M.D. 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 HISTORY OF PRESENT ILLNESS This is a 41-year-old gentleman who is currently on the ventilator because of impending respiratory failure as a result of progressive paralysis and cranial nerve involvement, who is widely awake and alert at this time. He denies any history of exposure to any ticks, mosquitos, other animals, insects and denies any outdoor activities in the recent past. He just returned from [place] where he got sick with upper respiratory infection-like symptoms. He then moved on to [facility] and then back to the [place]. Here, he developed weakness and difficulty walking. He had mainly left leg and right upper extremity weakness. In the hospital, he was noted to have asymmetric paralysis as well as brainstem cranial nerves involvement, was intubated because of high risk for aspiration. CSF studies show only 6 WBCs, normal protein and glucose and negative gram stain so far. His MRI is absolutely negative. 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 He has no documented fever or chills. There is no skin rash. ID was consulted for possible infectious etiology. The patient is currently stable. He is on the ventilator, was fully awake and alert. Denies any headache at all. He has no fever or chills. He stays in the city in [place], he never took a trip to desert or wooded areas. There was no exposure to sick contacts, insects, animals, etc. PAST MEDICAL HISTORY Negative. PREVIOUS SURGERIES None. SOCIAL HISTORY No alcohol, drug or tobacco abuse. FAMILY HISTORY Negative. DRUG ALLERGIES Penicillin. HOME MEDICATIONS None. In the hospital, he is on: Unit #: [id number] #: [id number] Patient: DANE POPE 1. Zosyn. 2. Etomidate. 3. Fentanyl. 4. Versed. 5. Aspirin. 6. P.r.n. NovoLog. 7. IVIG. SYSTEMIC REVIEW No headache, fever, chills or pain anywhere. His main symptoms were asymmetric weakness of the left arm and right leg with choking. No rash. He had initially a cough which is now resolved. There is no abdominal pain, dysuria, nausea, vomiting or diarrhea. PHYSICAL EXAMINATION GENERAL APPEARANCE: Young, male who is on the vent. He is wide awake and alert and doesn't appear to be in any distress. VITAL SIGNS: Temperature 98.7, heart rate 100, respirations 18, blood pressure 118/16. He had a T-max of 102.6 yesterday but is afebrile today. NECK: Supple. There is no rash or edema. LUNGS: Clear. HEART: Heart sounds are normal. ABDOMEN: Soft and nontender. EXTREMITIES: He appears to have generalized weakness, more so in the left upper extremity and right lower leg which appears to be lower motor neuron type. DIAGNOSTIC STUDIES LABORATORY: Blood cultures are negative. CSF gram stain is negative. Sputum culture is negative so far. Cryptococcal antigen in the CSF is negative. CSF cell count 6, neutrophils 15, lymphocytes 84. CSF glucose is 98, protein 22. Sed rate is 36. White count is 23.7, hematocrit is 43, platelets 265, neutrophils 89%. Sodium 134, potassium 3.5, chloride 102, CO2 29, BUN 8, creatinine 0.6. IMAGING: MRI of the head was negative for acute disease. Chest x-ray shows heart upper limit of normal. Lung volumes are moderate. Pulmonary vasculature is prominent. Patchy opacities in the left retrocardiac region are nonspecific. Possible atelectasis. No dense airspace consolidation was noted. Urine drug screen positive for opiates. IMPRESSION Atypical asymmetric lower motor neuron type paralysis, mostly involving the right leg and left arm with brainstem cranial nerve palsy this presentation and recent history is very suggestive of postinfectious encephalomyelitis. There is nothing to suggest recent exposure to ticks or mosquitos or high risk sexual behavior. Other possibility may be post mycoplasma infection encephalomyelitis. Unit #: [id number] #: [id number] Patient: DANE POPE RECOMMENDATIONS Will cover him with Zithromax, DC Zosyn. After consultation with neuro, we decided to repeat MRI of the brain and C-spine to see if any atypical lesions are seen in the C-spine. Atypical Guillain-Tampa syndrome is also a possibility and IVIG has been initiated. Thank you, Dr. Perez, for asking us to see this patient. We will follow along with you. Dictated by... Rama Rojas/audra TD: 02/03/2017 07:50 JOB #: [id number] CONSULTATION REPORT Page 1 of 1 X Jacques Greene MD X CONSULTATION REPORT
--- NOTE | ~2017-01-31 | OR ---
Unit #: [id number] #: [id number] Patient: DANE POPE [id number] [address] [place], [place] [address] [id number] I MR#: [id number] NAME: DANE POPE ROOM: [facility] Date of Procedure: 02/02/2017 Admission Date: 01/31/2017 Surgeon: Rui Beverly M.D. : 1975 Attending Physician: Analy Perez M.D. Primary Care Physician: No Primary Care Physician PROCEDURE OPERATIVE NOTE PROCEDURE PERFORMED Diagnostic lumbar puncture. INDICATION FOR PROCEDURE Fever of unknown source. COMPLICATIONS None. DESCRIPTION OF PROCEDURE An informed consent was obtained from the medical power of telecommunications administrator after explaining the benefit and risk of this procedure. Patient was prepped and positioned in a proper way, then he was cleaned with iodine sticks and then sterile drape was applied to his back. Then at the level of L4-L5, a spinal needle was inserted between the vertebra until clear fluid was obtained. Four tubes, each one with 4 mL, were obtained then stylet was inserted in the needle and the needle was removed. Then clean dressing was applied and patient will be laid flat for four hours. Patient tolerated his procedure well with no immediate complications. Dictated by... Rui Beverly M.D. EA/emerald TD: 02/02/2017 11:09 JOB #: [id number] PROCEDURE OPERATIVE NOTE Page 1 of 1 X RUI SCHILLING MD X PROCEDURE OPERATIVE NOTE
--- NOTE | ~2017-01-31 | CR7 ---
[facility] A Service of [facility] RADIOLOGY TEXT RESULTS PATIENT: DANE POPE LOCATION: CICCU2 CICCU2 : [birth year] UNIT #: [id number] AGE: [address]: Analy Perez MD SEX: M ORDER DR: [id number] [facility] [address] [facility]. [place], [place] [address] [id number] I MR#: [id number] Acc #: [id number] NAME: DANE POPE : 1975 SEX: M STUDY DATE/TIME: 02/02/2017 13:14 UNIT: [facility] ROOM: [facility] STUDY DESCRIPTION: CR Abdomen Single AP View Attending Physician: Analy Perez M.D. Ordering Physician: Analy Perez M.D. Primary Care Physician: No Primary Care Physician MEDICAL IMAGING REPORT This report is preliminary unless electronic signature is present EXAM Supine radiograph of the abdomen, 02/02/2017. HISTORY Dobbhoff tube placement. TECHNIQUE Left anterior oblique view of the abdomen is presented. COMPARISON STUDIES Earlier on same date. FINDINGS Flexible feeding tube terminates in the proximal stomach extending below diaphragm approximately 4 cm. For placement in vog-fi-kalyrr stomach it should be advanced 10-15 cm in reassessed radiographically. The visualized bowel gas pattern is normal. Elevation of the right hemidiaphragm stable. Slight blunting of the left lateral costophrenic sulcus could reflect atelectatic change in adjacent lung or trace pleural fluid. Heart and mediastinum probably within normal limits of size and contour given obliquity. Dictated by... Jose Guadalupe Reinoso M.D. THIS IS AN ELECTRONICALLY VERIFIED REPORT Jose Guadalupe Reinoso M.D. at 02/03/2017 10:55 PM BRENT/sal TD: 02/02/2017 15:14 [facility] A Service of [facility] RADIOLOGY TEXT RESULTS PATIENT: DANE POPE LOCATION: CICCU2 CICCU2- : [birth year] UNIT #: [id number] AGE: [address]: Analy Perez MD SEX: M ORDER DR: JOB #: [id number] MEDICAL IMAGING REPORT Page 1 of 1 COPY
--- NOTE | ~2017-01-31 | CO ---
Unit #: [id number] #: [id number] Patient: DANE POPE [id number] [address] [place], [place] [address] [id number] I MR#: [id number] NAME: DANE POPE ROOM: [facility] Age: 41 Sex: M Admission Date: 01/31/2017 : 1975 Attending Physician: Analy Perez M.D. Primary Care Physician: Rupa Primary Care Physician Requesting Physician: Sebas Beverly M.D. CONSULTATION REPORT REASON FOR REQUEST FOR CONSULT Respiratory failure with associated probable CVA and need for trach due to nonfunctional pharyngeal tone. HISTORY OF PRESENT ILLNESS Mr. Pope is a 41-year-old male of [place] descent who was traveling outside of the [place] for one month. Upon returning home yesterday by airline, he complaint of limb weakness, dysarthria, dysphagia and slurred speech. He states, on review of Dr. Vargas's note, the patient had complaint of some difficulty with his speech before ever leaving [place]. He underwent an initial CTA of the head and neck which were both negative and a MRI is pending. This a.m. he deteriorated and was unable to handle his secretions due to nonfunctional pharyngeal tone and was intubated. I am evaluating the patient as he is intubated on the ventilator. He did have a video swallow prior to intubation which showed that he had no functional pharyngeal swallow. PAST MEDICAL HISTORY None. PAST SURGICAL HISTORY None. FAMILY AND SOCIAL HISTORY He is . His is in [place]. He is a businessman by profession. He denies any smoking, ETOH or drug use and that is retrieved from the medical record. MEDICATIONS 1. D5 and a half at 100 mL/hour. 2. Fentanyl drip. 3. He had one aspirin yesterday. 4. He takes atorvastatin at home but that has not been restarted. REVIEW OF SYSTEMS Not obtained because the patient is intubated. PHYSICAL EXAMINATION GENERAL APPEARANCE: Mr. Pope is a 41-year-old male who is sedated, intubated and his history is on the chart. VITAL SIGNS: Temperature 98.1. Heart rate 87. Respiratory rate 20. Blood pressure 126/71. NEUROLOGIC: I am unable to fully assess related to sedation with a Fentanyl drip. Unit #: [id number] #: [id number] Patient: DANE POPE NECK: Supple. Trachea midline. No thyromegaly. No palpable cervical, supraclavicular or occipital lymphadenopathy. He did not have any subcu emphysema. LUNGS: Clear to auscultation. No rales, rhonchi or wheezes. He has equal chest expansion with inspiration. CARDIAC: S1, S2 without rub, without murmur. No S3 or S4 and he does have a trace of peripheral edema. ABDOMEN: Round, soft. Bowel sounds positive. Nontender. No pulsatile masses or hepatosplenomegaly. EXTREMITIES: Warm and dry. There are no ulcers, lesions or masses. He has 2+ edema in the lower extremities. DIAGNOSTIC STUDIES LABORATORY: BUN 7, creatinine 0.5, sodium 137, potassium 3.6. Hemoglobin 15.7, hematocrit 47.1, platelets 290, WBC 66.9. His drug screen that was performed on admission was positive for opiates plus/minus whether that is pertinent because the patient may have been given pain medicine in the ER. IMAGING: CTA of the head and neck were both normal. MRIs are pending. They attempted to do the MRI this morning. The gentleman was unable to lay flat on the MRI scanner or manage his secretions. IMPRESSION 1. Nonfunctional pharyngeal swallow leading to an inability to handle secretions leading to intubation this morning by Dr. Beverly. The patient stated he did want to be intubated and he did want a tracheostomy. 2. Probable CVA but MRIs are pending and Dr. Vargas has been consulted and will handle that aspect of his care. 3. Dr. Gamez has been consulted for tube placement. PLAN Tracheostomy 2 p.m. on 02/02/17 scheduled in the OR with Dr. Ras Tidwell. Dictated by... Benoit Crowley/rupinder TD: 02/01/2017 12:55 JOB #: [id number] CONSULTATION REPORT Page 1 of 1 X Esperanza Wagner APRN X CONSULTATION REPORT
--- NOTE | ~2017-01-31 | OR ---
Unit #: [id number] #: [id number] Patient: DANE POPE [id number] [address] [place], [place] [address] [id number] I MR#: [id number] NAME: DANE POPE ROOM: [facility] Date of Procedure: 02/01/2017 Admission Date: 01/31/2017 Surgeon: Rui Beverly M.D. : 1975 Attending Physician: Analy Perez M.D. Primary Care Physician: No Primary Care Physician PROCEDURE OPERATIVE NOTE PREOPERATIVE DIAGNOSIS Acute ischemic CVA. PROCEDURE PERFORMED Endotracheal intubation with direct laryngoscope. INDICATION FOR PROCEDURE Airway protection. PREMEDICATIONS 1. Etomidate 20 mg IV times one. 2. Succinylcholine 100 mg IV times one. 3. Versed 2 mg IV times one. COMPLICATION None. DESCRIPTION OF THE PROCEDURE An informed consent was obtained from the patient prior to the procedure anticipating long-term tracheostomy in the future. The patient was prepped and positioned in the proper way. Then, he was premedicated with etomidate, succinylcholine and Versed. Then, my refinery operator assistant, Alysia Romero A.P.R.N., performed the direct laryngoscope with max size 4 blade and a good view of the vocal cords was obtained. Then, an ET tube size 8 was inserted and passed the vocal cords with no complication. A good color of the CO2 detector was obtained and a good bilateral breath sound was auscultated. Chest x-ray is pending at the time of report. Dictated by... Rui Beverly M.D. EA/rupinder TD: 02/01/2017 12:11 JOB #: [id number] Unit #: [id number] #: [id number] Patient: DANE POPE PROCEDURE OPERATIVE NOTE Page 1 of 1 X RUI SCHILLING MD X PROCEDURE OPERATIVE NOTE
--- NOTE | ~2017-01-31 | CO ---
Unit #: [id number] #: [id number] Patient: DANE POPE [id number] [facility] [address] [facility]. [place], [place] [address] [id number] I MR#: [id number] NAME: DANE POPE ROOM: 303 Age: 41 Sex: M Admission Date: 01/31/2017 : 1975 Attending Physician: Analy Perez M.D. Primary Care Physician: Primary Care Physician No Consultation Date: 01/31/2017 CONSULTATION REPORT PRIMARY CARE PHYSICIAN None. REASON FOR CONSULTATION Weakness. PATIENT IDENTIFICATION This is a 41-year-old gentleman, who was evaluated in room 303 at [facility]. SOURCE OF INFORMATION The patient and evaluation done by Dr. Beverly. Past medical problem is none. Past surgical history is none. HISTORY OF PRESENT ILLNESS This is a 41-year-old gentleman from, I believe, [place], who actually was out of the country for about a month. He reports that probably Tuesday night or Tuesday morning when he woke up, he noticed that he had some speech problem. He decided to come to [place] and then came to the emergency room. He had some wobbly gait, so he came today. His CT is okay on exam. When I saw him, he is dysarthric. He has swallowing problems. He has right upper extremity weakness and left lower extremity weakness. He is going for an MRI. No drugs. No head injury. Nothing suggesting dissection. No migraines. No seizure. PAST MEDICAL HISTORY Unremarkable. PAST SURGICAL HISTORY Unremarkable. FAMILY HISTORY Unit #: [id number] #: [id number] Patient: DANE POPE No history of strokes in young. SOCIAL HISTORY No tobacco, alcohol, or drug use. ALLERGIES Penicillin. HOME MEDICATIONS None. REVIEW OF SYSTEMS Mostly as discussed in the history of present illness. CONSTITUTIONAL: Dysarthria, weakness. No weight issues, fever, chills, rigors, or sweats. HEENT: Swallowing problem. CARDIOVASCULAR: No chest pain, clubbing, cyanosis, orthopnea, or palpitations. PULMONARY: No shortness of air, cough, or expectoration. GASTROINTESTINAL: No nausea, vomiting, diarrhea, or constipation. GENITOURINARY: No genitourinary problem. EXTREMITIES: Problem as discussed. BACK: No back problem. PSYCHIATRIC: No psychotic issue. NEUROLOGIC: As discussed. No other hematologic, dermatologic, or endocrine problem. PHYSICAL EXAMINATION VITAL SIGNS: Temperature 98 degrees Fahrenheit, pulse 82, respirations 18, blood pressure 120/78, pain is questionable 9/10, O2 saturations are 97% to 98%, weight of 210 pounds. NEUROLOGIC: The patient is awake. He is alert. He is dysarthric, but he is oriented. He can name and he can follow commands. No right/left confusion. No finger agnosia. Cranial examination demonstrates full liang of vision. Eye movements are conjugate. I did not see any ptosis. I did not see any nystagmus. Extraocular movements are intact. Sensation on the face and scalp are normal. Strength of muscles of facial expression normal. He may have limited gag on the right side, but left is okay. Uvula is midline. Tongue movements are okay. On motor examination, he has normal bulk and tone. Strength in the right upper extremity is 3+/5, left upper extremity is 5/5, right lower extremity is 5/5. Sensory examination intact for soft touch and pain sensation. No extinction is seen. Romberg is not evaluated. Gait examination is deferred. Reflexes are 1/4. Toes are questionable. Gait is not evaluated. Coordination is normal on the left side. DIAGNOSTIC STUDIES IMAGING STUDIES: CT and CTA reviewed. Unit #: [id number] #: [id number] Patient: DANE POPE IMPRESSION I am suspecting either multifocal infarcts or probably brainstem infarct. He denies any ataxia, but I am concerned that he may have it and the weakness is masking it. He denies any sensory changes, but definitely, I will wait for the MRI and go from there. We will give him aspirin, have PT/OT see him and see how things rim turning finisher. A stroke workup has been initiated. I will follow him. Call me for any other questions, issues or concerns, and further treatment will be based on our findings. Dictated by... Roque Vargas M.D. MARCELINO/zunilda TD: 01/31/2017 22:31 JOB #: [id number] CONSULTATION REPORT Page 1 of 1 X Roque Vargas MD CONSULTATION REPORT
--- NOTE | ~2017-01-31 | MR31 ---
[facility]. [facility] A Service of [facility] RADIOLOGY TEXT RESULTS PATIENT: DAEN POPE LOCATION: [address] : [birth year] UNIT #: [id number] AGE: [address]: Analy Perez MD SEX: M ORDER DR: [id number] [facility] [address] [facility] [place], [place] [address] [id number] I MR#: [id number] Acc #: [id number] NAME: DANE POPE : 1975 SEX: M STUDY DATE/TIME: 02/03/2017 14:13 UNIT: [facility] ROOM: [facility] STUDY DESCRIPTION: MR Cervical WWo Contrast Attending Physician: Analy Perez M.D. Ordering Physician: Analy Perez M.D. Primary Care Physician: No Primary Care Physician MRI CENTER REPORT This report is preliminary unless electronic signature is present. EXAM MRI of the cervical spine with and without contrast dated 02/03/2017 COMPARISON STUDIES MRI of the brain with and without contrast dated 02/03/2017. No prior cervical spine CT or MRI. HISTORY Unable to move extremities since 01/31/2017. TECHNIQUE Multisequence multiplanar imaging of the cervical spine was obtained with and without contrast. 20 mL of MultiHance was administered intravenously. FINDINGS There is straightening of normal cervical curvature. Degenerative disc disease is at multiple levels. Cord demonstrates normal expected course, caliber and signal. Imaged posterior fossa demonstrates prominent CSF in the posterior aspect of the cerebella vermis suggestive of salvador cisterna magna or a retrocerebellar benign arachnoid cyst. Pre and paravertebral soft tissues do not demonstrate any significant abnormality. C2-3: Mild disc bulge with small central protrusion. Mild right neuroforaminal encroachment is seen without any significant canal stenosis. C3-4: Concentric disc bulge with mild left facet hypertrophic change and mild left neuroforaminal narrowing. Borderline size canal. C4-5: Concentric disc bulge with small central protrusion and borderline size canal. Minimal left neuroforaminal encroachment is seen. C5-6: Concentric disc bulge with superimposed right to left subarticular STS. [facility] A Service of [facility] RADIOLOGY TEXT RESULTS PATIENT: DANE POPE LOCATION: CICCU2 CICCU2-05 : [birth year] UNIT #: [id number] AGE: [address]: Analy Perez MD SEX: M ORDER DR: broad base protrusion. Borderline size canal is seen without any significant neuroforaminal narrowing. C6-7: Concentric disc bulge with superimposed right to left subarticular broad base disc protrusion without any significant neuroforaminal narrowing. Borderline size canal. C7-T1: Mild degenerative disc signal loss but otherwise unremarkable. Post contrast sequences do not demonstrate enhancing lesions particularly in the cord. There is a subcutaneous 8 mm lesion in the right posterolateral aspect of the cervicothoracic junction. It is probably an incidental benign lesion like sebaceous cyst. IMPRESSION 1. Mild degenerative changes are noted at multiple levels of the cervical spine, relatively worse at C5-6 and C6-7 with borderline size canal. 2. Cord is unremarkable. 3. Refer above. Dictated by... Lili Echols M.D. THIS IS AN ELECTRONICALLY VERIFIED REPORT Lili Echols M.D. at 02/04/2017 4:18 PM AWA/william TD: 02/03/2017 15:38 JOB #: [id number] MRI CENTER REPORT Page 1 of 1 COPY
[2017-01-31 07:53] LABS: BASOPHIL# 0.1 X10e3 (0-0.3); BASOPHIL% 0.8 % (0-2.5); EOSINOPHIL% 0.3 % (0.0-7.0); HEMOGLOBIN 14.9 gm/dL (13.0-16.0); LYMPHOCYTE# 2.1 X10e3 (1.0-3.5); LYMPHOCYTE% 29.6 % (17.0-45.0); MEAN CELL VOLUME 86.1 FL (83-96); MEAN CORPUSCULAR HEMOGLOBIN 28.4 PG (28-34); MEAN PLATELET VOLUME 8.5 FL (6.5-11.5); MONOCYTE# 0.7 X10e3 (0-1.0); MONOCYTE% 9.5 % (3.0-12.0); NEUTROPHIL# 4.2 X10e3 (1.5-7.1); NEUTROPHIL% 59.8 % (40-75); PLATELET COUNT 263 X10e3 (140-420); RED BLOOD COUNT 5.23 X10e (3.90-5.60)
[2017-01-31 07:57] LABS: DIFF IND NO
[2017-01-31 08:08] LABS: ALBUMIN SERUM 4.1 g/dL (3.5-5.0); BILIRUBIN, DIRECT 0.1 mg/dL (0.0-0.2); BILIRUBIN,INDIRECT 0.2 mg/dL (0.0-0.9); BILIRUBIN,TOTAL 0.3 mg/dL (0.2-2.0); CALCIUM SERUM 9.5 mg/dL (8.4-10.2); CREATININE SERUM 0.6 mg/dL (0.6-1.4); GLOM FILT RATE Estimated 123.2 mL/min (>60); POTASSIUM 3.6 mmol/L (3.5-5.1); PROTEIN TOTAL SERUM 7.7 g/dL (6.0-8.3)
[2017-01-31 08:10] LABS: PARTIAL THROMBOPLASTIN TIME 27.1 SECONDS (23.5-31.3); PROTHROMBIN TIME (PATIENT) 10.8 SECONDS (9.6-11.5)
[2017-01-31 14:08] LABS: CHOLESTEROL 184 mg/dL (0-200); HDL CHOLESTEROL 32 mg/dL (29-75); LDL/HDL RATIO 4 RATIO (0-4); TRIGLYCERIDES 78 mg/dL (10-160)
[2017-01-31 14:09] LABS: LDL CHOLESTEROL 136 mg/dL (-130)
[2017-01-31 14:34] LABS: AMPHETAMINE NEG (NEG); BARBITURATES NEG (NEG); BENZODIAZEPINES NEG (NEG); COCAINE NEG (NEG); MARIJUANA NEG (NEG); OPIATES POS (NEG); TRICYCLIC ANTIDEPRESSANTS NEG (NEG); U METHADONE NEG (NEG)
[2017-02-01 04:57] LABS: BASOPHIL% 0.3 % (0-2.5); EOSINOPHIL% 0.4 % (0.0-7.0); HEMATOCRIT 47.7 % (38.0-50.0); HEMOGLOBIN 15.7 gm/dL (13.0-16.0); LYMPHOCYTE# 1.6 X10e3 (1.0-3.5); LYMPHOCYTE% 23.6 % (17.0-45.0); MEAN CELL VOLUME 85.5 FL (83-96); MEAN CORPUSCULAR HEMOGLOBIN 28.2 PG (28-34); MEAN PLATELET VOLUME 8.4 FL (6.5-11.5); MONOCYTE# 0.6 X10e3 (0-1.0); NEUTROPHIL# 4.7 X10e3 (1.5-7.1); NEUTROPHIL% 67.7 % (40-75); PLATELET COUNT 290 X10e3 (140-420); RED BLOOD COUNT 5.58 X10e (3.90-5.60); RED CELL DISTRIBUTION WIDTH 12.5 % (11.0-15.5); WHITE BLOOD COUNT 6.9 X10e3 (4.0-10.5)
[2017-02-01 04:58] LABS: DIFF IND NO
[2017-02-01 05:50] LABS: CHOLESTEROL 185 mg/dL (0-200); HDL CHOLESTEROL 34 mg/dL (29-75); LDL/HDL RATIO 4 RATIO (0-4); TRIGLYCERIDES 56 mg/dL (10-160)
[2017-02-01 05:59] LABS: LDL CHOLESTEROL 140 mg/dL (-130)
[2017-02-01 06:03] LABS: CALCIUM SERUM 9.5 mg/dL (8.4-10.2); CREATININE SERUM 0.5 mg/dL (0.6-1.4); GLOM FILT RATE Estimated 132.8 mL/min (>60); POTASSIUM 3.6 mmol/L (3.5-5.1)
[2017-02-01 12:36] LABS: ARTERIAL BLD GAS O2 SATURATION 89.5 % (90.0-100.0); ARTERIAL BLOOD GAS CARBOXY HB 0.5 %sat (0.0-9.0); ARTERIAL BLOOD GAS HCO3 25.7 mmol/L; ARTERIAL BLOOD GAS MET HB 0.6 %sat (0.0-2.0); ARTERIAL BLOOD GAS PCO2 40.4 mmHg (35.0-45.0); ARTERIAL BLOOD GAS pH 7.412 (7.350-7.450)
[2017-02-01 12:37] LABS: ARTERIAL BLOOD GAS ART SITE RIGHT RADIAL; ARTERIAL BLOOD GAS DELIVERY VENT; ARTERIAL BLOOD GAS PO2 59.6 mmHg (80.0-100); ARTERIAL BLOOD GAS VENT MODE AC; ARTERIAL DRAW? YES
[2017-02-02 03:42] LABS: BASOPHIL% 0.2 % (0-2.5); HEMATOCRIT 43.5 % (38.0-50.0); HEMOGLOBIN 14.4 gm/dL (13.0-16.0); LYMPHOCYTE# 1.4 X10e3 (1.0-3.5); LYMPHOCYTE% 5.8 % (17.0-45.0); MEAN CELL VOLUME 84.4 FL (83-96); MEAN CORPUSCULAR HGB CONC 33.2 g/dL (30-36); MONOCYTE% 4.2 % (3.0-12.0); NEUTROPHIL# 21.2 X10e3 (1.5-7.1); NEUTROPHIL% 89.8 % (40-75); PLATELET COUNT 265 X10e3 (140-420); RED BLOOD COUNT 5.16 X10e (3.90-5.60); RED CELL DISTRIBUTION WIDTH 12.2 % (11.0-15.5); WHITE BLOOD COUNT 23.7 X10e3 (4.0-10.5)
[2017-02-02 03:45] LABS: DIFF IND YES
[2017-02-02 03:54] LABS: INR 1.1; PARTIAL THROMBOPLASTIN TIME 27.5 SECONDS (23.5-31.3); PROTHROMBIN TIME (PATIENT) 11.8 SECONDS (9.6-11.5)
[2017-02-02 04:00] LABS: BUN/CREATININE RATIO 13.33; CALCIUM SERUM 8.7 mg/dL (8.4-10.2); CREATININE SERUM 0.6 mg/dL (0.6-1.4); GLOM FILT RATE Estimated 123.2 mL/min (>60); MAGNESIUM 1.9 mg/dL (1.6-3.0); POTASSIUM 3.5 mmol/L (3.5-5.1)
[2017-02-02 04:07] LABS: PLATELET ESTIMATE NORMAL (NORMAL)
[2017-02-02 04:08] LABS: ANISOCYTOSIS SL
[2017-02-02 13:45] LABS: CSF APPEARANCE CLEAR (CLEAR); CSF RBC 1 CMM (0); CSF TUBE NUMBER 3; CSF WBC 6 CMM (0-8); CSF XANTHACHROMIC NO
[2017-02-02 13:57] LABS: GLUCOSE-CSF 98 mg/dL (50-80); PROTEIN-CSF 22 mg/dL (15-45)
[2017-02-02 14:01] LABS: CSF LYMPHOCYTE 84 %; CSF MONOCYTE 1 %; CSF NEUTROPHIL 15 %
[2017-02-02 14:22] LABS: CRYPTO AG CSF/SERUM NEG (NEG); CRYPTO AG SOURCE CSF
[2017-02-03 08:45] LABS: BASOPHIL# 0.1 X10e3 (0-0.3); BASOPHIL% 0.4 % (0-2.5); EOSINOPHIL% 0.1 % (0.0-7.0); HEMOGLOBIN 13.5 gm/dL (13.0-16.0); LYMPHOCYTE% 5.5 % (17.0-45.0); MEAN CELL VOLUME 86.7 FL (83-96); MEAN CORPUSCULAR HEMOGLOBIN 28.5 PG (28-34); MEAN CORPUSCULAR HGB CONC 32.9 g/dL (30-36); MEAN PLATELET VOLUME 8.3 FL (6.5-11.5); MONOCYTE# 0.6 X10e3 (0-1.0); MONOCYTE% 3.4 % (3.0-12.0); NEUTROPHIL# 17.1 X10e3 (1.5-7.1); NEUTROPHIL% 90.6 % (40-75); PLATELET COUNT 239 X10e3 (140-420); RED BLOOD COUNT 4.73 X10e (3.90-5.60); RED CELL DISTRIBUTION WIDTH 12.1 % (11.0-15.5); WHITE BLOOD COUNT 18.9 X10e3 (4.0-10.5)
[2017-02-03 08:46] LABS: DIFF IND NO
[2017-02-03 09:08] LABS: CALCIUM SERUM 8.7 mg/dL (8.4-10.2); CREATININE SERUM 0.5 mg/dL (0.6-1.4); GLOM FILT RATE Estimated 132.8 mL/min (>60); POTASSIUM 3.3 mmol/L (3.5-5.1)
[2017-02-03 22:48] LABS: HSV 1 DNA Not Detected (Not Detected); HSV 2 DNA Not Detected (Not Detected)
[2017-02-04 04:07] LABS: ARTERIAL BLD GAS O2 SATURATION 95.8 % (90.0-100.0); ARTERIAL BLOOD GAS ALLEN TEST NORMAL; ARTERIAL BLOOD GAS ART SITE RIGHT RADIAL; ARTERIAL BLOOD GAS CARBOXY HB 0.4 %sat (0.0-9.0); ARTERIAL BLOOD GAS DELIVERY VENT; ARTERIAL BLOOD GAS MET HB 0.9 %sat (0.0-2.0); ARTERIAL BLOOD GAS PCO2 55.9 mmHg (35.0-45.0); ARTERIAL BLOOD GAS PO2 85.8 mmHg (80.0-100); ARTERIAL BLOOD GAS VENT MODE SIMV; ARTERIAL BLOOD GAS pH 7.393 (7.350-7.450); ARTERIAL DRAW? YES
[2017-02-04 04:34] LABS: IMMUNOGLOBULIN A 334 mg/dL (81-463); IMMUNOGLOBULIN G 1004 mg/dL (694-1618)
[2017-02-04 06:01] LABS: BASOPHIL% 0.2 % (0-2.5); EOSINOPHIL% 0.1 % (0.0-7.0); HEMATOCRIT 36.7 % (38.0-50.0); LYMPHOCYTE# 1.2 X10e3 (1.0-3.5); LYMPHOCYTE% 6.8 % (17.0-45.0); MEAN CELL VOLUME 85.1 FL (83-96); MEAN CORPUSCULAR HEMOGLOBIN 27.9 PG (28-34); MEAN CORPUSCULAR HGB CONC 32.8 g/dL (30-36); MEAN PLATELET VOLUME 8.5 FL (6.5-11.5); MONOCYTE# 0.7 X10e3 (0-1.0); MONOCYTE% 3.6 % (3.0-12.0); NEUTROPHIL# 16.2 X10e3 (1.5-7.1); NEUTROPHIL% 89.3 % (40-75); PLATELET COUNT 232 X10e3 (140-420); RED BLOOD COUNT 4.31 X10e (3.90-5.60); RED CELL DISTRIBUTION WIDTH 12.4 % (11.0-15.5); WHITE BLOOD COUNT 18.2 X10e3 (4.0-10.5)
[2017-02-04 06:19] LABS: DIFF IND NO
[2017-02-04 06:53] LABS: CALCIUM SERUM 8.5 mg/dL (8.4-10.2); CREATININE SERUM 0.5 mg/dL (0.6-1.4); GLOM FILT RATE Estimated 132.8 mL/min (>60); PHOSPHOROUS 2.5 mg/dL (2.5-4.6); POTASSIUM 3.6 mmol/L (3.5-5.1)
[2017-02-04 09:47] LABS: MYELOPEROXIDASE AB (PNL) <1.0 AI (<1.0); PROTEINASE-3 AB (PNL) <1.0 AI (<1.0)
[2017-02-04 12:15] LABS: BODY FLUID APPEARANCE TURBID; BODY FLUID SOURCE BRONCHIAL LAVAGE
[2017-02-04 21:48] LABS: ANA SCREEN Negative (Negative)
[2017-02-05 14:10] LABS: HIV1 LOG COPIES/ML <1.30 (<1.30); HIV1COPIES/ML <20 (<20)
== END 2017-02-04 17:00 | disposition short-term general hospital (02) | DRG 166 ==
LOC: CED 07:43 → CEDOF 12:45 → C3A PCU 15:47 → CICCU2 02-01 11:20
PROVIDERS: Emergency Medicine; Family Medicine; Internal Medicine; Internal Medicine Nephrology; Internal Medicine Pulmonary Disease; Surgery
PROC: B325YZZ Computerized Tomography (CT Scan) of Bilateral Common Carotid Arteries using Other Contrast (ICD-10-PCS; 2017-01-31)
PROC: B32GYZZ Computerized Tomography (CT Scan) of Bilateral Vertebral Arteries using Other Contrast (ICD-10-PCS; 2017-01-31)
PROC: B328YZZ Computerized Tomography (CT Scan) of Bilateral Internal Carotid Arteries using Other Contrast (ICD-10-PCS; 2017-01-31)
PROC: 5A1945Z Respiratory Ventilation, 24-96 Consecutive Hours (ICD-10-PCS; 2017-02-01)
PROC: 05HN33Z Insertion of Infusion Device into Left Internal Jugular Vein, Percutaneous Approach (ICD-10-PCS; 2017-02-01)
PROC: B544ZZA Ultrasonography of Left Jugular Veins, Guidance (ICD-10-PCS; 2017-02-01)
PROC: 0BH18EZ Insertion of Endotracheal Airway into Trachea, Via Natural or Artificial Opening Endoscopic (ICD-10-PCS; 2017-02-01)
PROC: B24BYZZ Ultrasonography of Heart with Aorta using Other Contrast (ICD-10-PCS; 2017-02-01)
PROC: 009U3ZX Drainage of Spinal Canal, Percutaneous Approach, Diagnostic (ICD-10-PCS; 2017-02-02)
PROC: 0B9J8ZX Drainage of Left Lower Lung Lobe, Via Natural or Artificial Opening Endoscopic, Diagnostic (ICD-10-PCS; 2017-02-04)
PROC: 0B938ZX Drainage of Right Main Bronchus, Via Natural or Artificial Opening Endoscopic, Diagnostic (ICD-10-PCS; 2017-02-04)
PROC: 0B9F8ZX Drainage of Right Lower Lung Lobe, Via Natural or Artificial Opening Endoscopic, Diagnostic (ICD-10-PCS; principal; 2017-02-04 11:00)
DX: J96.01 Acute respiratory failure with hypoxia (principal); J69.0 Pneumonitis due to inhalation of food and vomit; G83.9 Paralytic syndrome, unspecified; Z88.0 Allergy status to penicillin; R13.13 Dysphagia, pharyngeal phase; R53.1 Weakness; D72.829 Elevated white blood cell count, unspecified
CPT/HCPCS: 36415; 36600; 70450; 70496; 70498; 70551; 70553; 71010; 72156; 74000; 74230; 80048; 80061; 80076; 80307; 82784; 82803; 82945; 82947; 83036; 83735; 84100; 84132; 84157; 85025; 85610; 85652; 85730; 86021; 86038; 86039; 86140; 86255; 86617; 86618; 87040; 87070; 87077; 87102; 87116; 87186; 87205; 87206; 87252; 87254; 87278; 87486; 87529; 87536; 87541; 87581; 87806; 87899; 88108; 88305; 88312; 89051; 92523-GN; 92611; 93005; 93306; 93971; 94002; 94003; 94640; 94760; 97110; 97163; 97164; 97166; 97168; 97530; 99285; A9577; C9113; J0171; J0330; J0456; J0696; J1568; J1650; J1815; J2250; J2543; J3010; J3370; J3490; Q9967